=== PATIENT | male | born 1940 | race Caucasian/White ===

== ENCOUNTER 2021-12-23 07:25 | Inpatient (IN) ==
[2021-12-23] MEDS ORDERED: SODIUM CHLORIDE 0.9% 500 ML IV STA (07:39)
[2021-12-23 07:49] LABS: Basophils % 0.2 % (0.0-0.8); Eosinophils # 0.1 10*3/uL (0.0-0.87); Eosinophils % 0.7 % (0.00-10.9); Hematocrit 32.9 VOL% (42.0-52.0); Hemoglobin 10.8 GM/DL (14.0-18.0); Immature Granulocytes % 1.4 %; Immature Granulocytes Absolute 0.14 #; Lymphocytes # 1.7 10*3/uL (1.4-4.0); Mean Corpuscular HGB Conc 32.8 GM/DL (32-36); Mean Corpuscular Volume 91.1 FL (87-102); Mean Platelet Volume 8.7 FL (9.6-12.0); Monocytes # 0.9 10*3/uL (0.11-0.8); Monocytes % 8.5 % (1.7-12.7); Neutrophils % 73.2 % (38.7-73.9); Platelet Count 206 T/CUMM (130-400); Red Blood Count 3.61 MC/CUMM (3.8-5.5); Red Cell Distribution Width 13.3 % (9.3-17.3); White Blood Count 10.3 T/CUMM (4-12)
[2021-12-23 07:58] LABS: INR 1.1; PT Patient Result 11.9 SECS (10.5-12.0)
[2021-12-23 08:12] LABS: Bilirubin,Urine Negative (Negative); Blood, Urine Large mg/dL (Negative); Glucose,Urine (UA) Negative (Negative); Ketones,Urine Trace mg/dL (Negative); Nitrite,Urine Negative (Negative); Protein,Urine 100 mg/dL (Negative); Urine Appearance Clear (Clear); Urine Color Yellow (Yellow); Urine Urobilinogen 0.2 eU/dL (<2.0); Urine pH 5.5 (4.5-8.0)
[2021-12-23 08:14] LABS: Mucus,Urine Occasional /LPF (Occasional); RBC,Urine 67 /HPF (0-4); Squamous Epithelial Cell,Urine Occasional /HPF (0-10)
[2021-12-23 08:34] LABS: Albumin 2.5 G/DL (3.4-5.0); Bilirubin,Total 0.8 MG/DL (0.20-1.00); Calcium 8.6 MG/DL (8.5-10.1); Osmolality,Calculated 293.8 MOS/KG (273-304); Potassium 4.1 MMOL/L (3.5-5.1); Total Protein 5.9 G/DL (6.4-8.2)
[2021-12-23] MEDS ORDERED: GLUCAGON 1 MG VIAL IM PRN (09:44)
[2021-12-23] MEDS ORDERED: ONDANSETRON 4 MG/2 ML VIAL IV PRN (09:44)
[2021-12-23] MEDS ORDERED: ALUMINUM/MAGNES/SIMETH MAX STR 30 ML UDCUP PO PRN (09:44)
[2021-12-23] MEDS ORDERED: DEXTROSE 10% 250 ML BAG IV PRN (09:44)
[2021-12-23] MEDS ORDERED: LACTULOSE 20 GM/30 ML UDCUP PO PRN (09:44)
[2021-12-23] MEDS ORDERED: DOCUSATE SODIUM 100 MG CAPSULE PO PRN (09:44)
[2021-12-23] MEDS ORDERED: ACETAMINOPHEN 325 MG TABLET PO PRN (09:44)
[2021-12-23] MEDS ORDERED: hydrALAZINE 20 MG/1 ML VIAL IV PRN (09:44)
[2021-12-23] MEDS ORDERED: LACTATED RINGERS 1,000 ML IV SCH (10:00)
[2021-12-23] MEDS ORDERED: MAGNESIUM SULF RIDER 2 GM/50 ML PREMIX IV PRN (11:26)
[2021-12-23] MEDS ORDERED: HYDROCORTISONE 1% CREAM 28 GM TUBE TOP PRN (11:26)
[2021-12-23] MEDS ORDERED: MAGNESIUM SULF RIDER 4 GM/100 ML PREMIX IV PRN (11:26)
[2021-12-23] MEDS: GABAPENTIN 400 MG CAPSULE PO SCH ×2 (14:12→21:22)
[2021-12-23] MEDS: INSULIN LISPRO 100 UNIT/ML SUBCUT SCH ×3 (14:38→21:32)
[2021-12-23] MEDS: SODIUM CHLORIDE 0.9% 1,000 ML IV SCH (17:55)
[2021-12-23] MEDS: carvediloL 25 MG TABLET PO SCH (18:00)
[2021-12-23] MEDS: ATORVASTATIN 40 MG TABLET PO SCH (21:22)
[2021-12-23] MEDS: HEPARIN 5,000 UNIT/1 ML VIAL SUBCUT SCH (21:22)
[2021-12-23] MEDS: DIVALPROEX SPRINKLE 125 MG CAPSULE PO SCH (21:23)
[2021-12-23] MEDS: TAMSULOSIN 0.4 MG CAPSULE PO SCH (21:23)
[2021-12-24 05:18] LABS: Basophils % 0.4 % (0.0-0.8); Eosinophils # 0.2 10*3/uL (0.0-0.87); Eosinophils % 2.8 % (0.00-10.9); Hemoglobin 10.2 GM/DL (14.0-18.0); Immature Granulocytes % 1.8 %; Immature Granulocytes Absolute 0.15 #; Mean Corpuscular HGB Conc 32.9 GM/DL (32-36); Mean Platelet Volume 9.1 FL (9.6-12.0); Monocytes # 0.7 10*3/uL (0.11-0.8); Monocytes % 8.4 % (1.7-12.7); Neutrophils % 63.6 % (38.7-73.9); Platelet Count 206 T/CUMM (130-400); Red Blood Count 3.37 MC/CUMM (3.8-5.5); Red Cell Distribution Width 13.3 % (9.3-17.3); White Blood Count 8.5 T/CUMM (4-12)
[2021-12-24 05:39] LABS: Albumin 2.1 G/DL (3.4-5.0); Bilirubin,Total 0.6 MG/DL (0.20-1.00); Osmolality,Calculated 298.3 MOS/KG (273-304); Potassium 3.7 MMOL/L (3.5-5.1); Risk Ratio 3.43; Total Protein 5.3 G/DL (6.4-8.2); VLDL Cholesterol 21.4 MG/DL
[2021-12-24] MEDS: SODIUM CHLORIDE 0.9% 1,000 ML IV SCH (07:08)
[2021-12-24] MEDS: INSULIN LISPRO 100 UNIT/ML SUBCUT SCH ×4 (07:58→21:36)
[2021-12-24] MEDS: DIVALPROEX SPRINKLE 125 MG CAPSULE PO SCH ×2 (09:37→21:35)
[2021-12-24] MEDS: MULTIVITAMIN (CENTRUM) TABLET PO SCH (09:37)
[2021-12-24] MEDS: carvediloL 25 MG TABLET PO SCH ×2 (09:37→17:00)
[2021-12-24] MEDS: TAMSULOSIN 0.4 MG CAPSULE PO SCH ×2 (09:38→21:36)
[2021-12-24] MEDS: THIAMINE 100 MG TABLET PO SCH (09:38)
[2021-12-24] MEDS: HEPARIN 5,000 UNIT/1 ML VIAL SUBCUT SCH ×2 (09:38→21:36)
[2021-12-24] MEDS: GABAPENTIN 400 MG CAPSULE PO SCH ×3 (09:38→21:35)
[2021-12-24] MEDS: PANTOPRAZOLE 40 MG TABLET PO SCH (09:38)
[2021-12-24] MEDS: METHEN/SOD PHOS/METH BLUE/HYOS TABLET PO SCH ×3 (12:56→21:36)
[2021-12-24] MEDS ORDERED: LIDOCAINE 2% TOP JELLY 5 ML TUBE TOP ONE (13:00)
[2021-12-24] MEDS ORDERED: BISACODYL 5 MG TABLET PO ONE (13:00)
[2021-12-24] MEDS: CLOPIDOGREL 75 MG TABLET PO SCH (14:57)
[2021-12-24] MEDS: SODIUM CHLORIDE 0.45% 1,000 ML IV SCH (17:02)
[2021-12-24] MEDS: ATORVASTATIN 40 MG TABLET PO SCH (21:36)
[2021-12-25] MEDS: SODIUM CHLORIDE 0.45% 1,000 ML IV SCH ×2 (04:07→11:42)
[2021-12-25 06:05] LABS: Basophils # 0.1 10*3/uL (0.0-0.2); Basophils % 0.7 % (0.0-0.8); Eosinophils # 0.3 10*3/uL (0.0-0.87); Eosinophils % 3.7 % (0.00-10.9); Hematocrit 31.2 VOL% (42.0-52.0); Hemoglobin 9.9 GM/DL (14.0-18.0); Immature Granulocytes % 2.5 %; Immature Granulocytes Absolute 0.18 #; Lymphocytes # 2.2 10*3/uL (1.4-4.0); Lymphocytes % 30.5 % (21.2-54.2); Mean Corpuscular HGB Conc 31.7 GM/DL (32-36); Mean Corpuscular Volume 93.1 FL (87-102); Mean Platelet Volume 9.3 FL (9.6-12.0); Monocytes # 0.7 10*3/uL (0.11-0.8); Monocytes % 9.4 % (1.7-12.7); Neutrophils % 53.2 % (38.7-73.9); Platelet Count 198 T/CUMM (130-400); Red Blood Count 3.35 MC/CUMM (3.8-5.5); Red Cell Distribution Width 13.2 % (9.3-17.3); White Blood Count 7.3 T/CUMM (4-12)
[2021-12-25 06:21] LABS: Calcium 7.7 MG/DL (8.5-10.1); Osmolality,Calculated 294.3 MOS/KG (273-304); Phosphorous 3.7 MG/DL (2.5-4.9); Potassium 3.8 MMOL/L (3.5-5.1)
[2021-12-25] MEDS: INSULIN LISPRO 100 UNIT/ML SUBCUT SCH ×4 (07:49→21:41)
[2021-12-25] MEDS: carvediloL 25 MG TABLET PO SCH ×2 (09:25→17:40)
[2021-12-25] MEDS: GABAPENTIN 400 MG CAPSULE PO SCH ×3 (09:27→21:41)
[2021-12-25] MEDS: DIVALPROEX SPRINKLE 125 MG CAPSULE PO SCH ×2 (09:27→21:41)
[2021-12-25] MEDS: TAMSULOSIN 0.4 MG CAPSULE PO SCH ×2 (09:28→21:41)
[2021-12-25] MEDS: CLOPIDOGREL 75 MG TABLET PO SCH (09:29)
[2021-12-25] MEDS: METHEN/SOD PHOS/METH BLUE/HYOS TABLET PO SCH ×4 (09:29→21:41)
[2021-12-25] MEDS: MULTIVITAMIN (CENTRUM) TABLET PO SCH (09:29)
[2021-12-25] MEDS: THIAMINE 100 MG TABLET PO SCH (09:29)
[2021-12-25] MEDS: PANTOPRAZOLE 40 MG TABLET PO SCH (09:29)
[2021-12-25] MEDS: HEPARIN 5,000 UNIT/1 ML VIAL SUBCUT SCH ×2 (09:31→21:42)
[2021-12-25] MEDS: DEXTROSE 5% 1,000 ML IV SCH (17:40)
[2021-12-25] MEDS: ATORVASTATIN 40 MG TABLET PO SCH (21:42)
[2021-12-26 05:58] LABS: Basophils % 0.5 % (0.0-0.8); Eosinophils # 0.3 10*3/uL (0.0-0.87); Eosinophils % 3.3 % (0.00-10.9); Hematocrit 32.2 VOL% (42.0-52.0); Hemoglobin 10.5 GM/DL (14.0-18.0); Immature Granulocytes % 2.1 %; Immature Granulocytes Absolute 0.18 #; Lymphocytes # 2.2 10*3/uL (1.4-4.0); Lymphocytes % 26.4 % (21.2-54.2); Mean Corpuscular HGB Conc 32.6 GM/DL (32-36); Mean Corpuscular Volume 89.9 FL (87-102); Mean Platelet Volume 9.4 FL (9.6-12.0); Monocytes # 0.7 10*3/uL (0.11-0.8); Monocytes % 8.3 % (1.7-12.7); Neutrophils % 59.4 % (38.7-73.9); Platelet Count 224 T/CUMM (130-400); Red Blood Count 3.58 MC/CUMM (3.8-5.5); Red Cell Distribution Width 13.2 % (9.3-17.3); White Blood Count 8.5 T/CUMM (4-12)
[2021-12-26] MEDS: DIVALPROEX SPRINKLE 125 MG CAPSULE PO SCH (09:00)
[2021-12-26] MEDS: DEXTROSE 5% 1,000 ML IV SCH (09:10)
[2021-12-26] MEDS: INSULIN LISPRO 100 UNIT/ML SUBCUT SCH ×2 (09:11→12:18)
[2021-12-26] MEDS: METHEN/SOD PHOS/METH BLUE/HYOS TABLET PO SCH ×2 (09:13→12:23)
[2021-12-26] MEDS: carvediloL 25 MG TABLET PO SCH (09:13)
[2021-12-26] MEDS: TAMSULOSIN 0.4 MG CAPSULE PO SCH (09:13)
[2021-12-26] MEDS: HEPARIN 5,000 UNIT/1 ML VIAL SUBCUT SCH (09:14)
[2021-12-26] MEDS: THIAMINE 100 MG TABLET PO SCH (09:14)
[2021-12-26] MEDS: PANTOPRAZOLE 40 MG TABLET PO SCH (09:14)
[2021-12-26] MEDS: CLOPIDOGREL 75 MG TABLET PO SCH (09:14)
[2021-12-26] MEDS: MULTIVITAMIN (CENTRUM) TABLET PO SCH (09:14)
[2021-12-26] MEDS: GABAPENTIN 400 MG CAPSULE PO SCH (09:14)
[2021-12-26 11:38] VITALS: BP 145/62
[2022-01-12] MEDS ORDERED: CYANOCOBALAMIN 1000 MCG/1 ML VIAL IM SCH (09:00)
== END 2021-12-26 14:26 | DRG 682 ==
LOC: N.ED 07:25 → N.EDINP 09:45 → SUATTDRO 09:45 → N.5E 10:34
PROVIDERS: ADMIT Internal Medicine; ATTEND Internal Medicine